=== PATIENT | male | born 1990 | race Two or more races ===

== ENCOUNTER 2017-06-11 14:33 | Emergency (ER) | payer OTHER ==
[~2017-06-11] VITALS: Ht 175.3 cm; Wt 63.5 kg
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
[2017-06-11 15:23] LABS: BASOPHILS % (AUTO) 0.9 % (0.0-2.0); EOSINOPHILS % (AUTO) 0.5 % (0.0-3.0); HEMATOCRIT 43.3 % (42.0-52.0); HEMOGLOBIN 15.2 G/DL (14.2-18.0); LYMPHOCYTES % (AUTO) 14.5 % (20.0-45.0); MEAN CORPUSCULAR VOLUME 96 FL (80-99); MONOCYTES % (AUTO) 6.6 % (1.0-10.0); NEUTROPHILS % (AUTO) 77.5 % (45.0-75.0); PLATELET COUNT 285 K/UL (150-450); RED BLOOD COUNT 4.53 M/UL (4.70-6.10); RED CELL DISTRIBUTION WIDTH 11.9 % (11.6-14.8); WHITE BLOOD COUNT 8.5 K/UL (4.8-10.8)
[2017-06-11 15:26] VITALS: BP 113/66
[2017-06-11 15:56] LABS: ALANINE AMINOTRANSFERASE 47 U/L (12-78); ALBUMIN 3.9 G/DL (3.4-5.0); ALBUMIN/GLOBULIN RATIO 1.1 (1.0-2.7); ALKALINE PHOSPHATASE 125 U/L (46-116); ANION GAP 8 mmol/L (5-15); ASPARTATE AMINO TRANSFERASE 24 U/L (15-37); BILIRUBIN,TOTAL 0.3 MG/DL (0.2-1.0); BLOOD UREA NITROGEN 9 mg/dL (7-18); CARBON DIOXIDE 29 MMOL/L (21-32); CHLORIDE 107 MMOL/L (98-107); SODIUM 144 MMOL/L (136-145)
[2017-06-11 16:16] VITALS: BP 115/66
[2017-06-11 16:40] VITALS: BP 115/66
--- NOTE | 2017-06-12 09:47 | Diagnostic Imaging Report ---
Indication: Head pain Technique: Continuous helical CT scanning of the head was performed utilizing automated exposure control without intravenous contrast material. Axial and coronal reconstructions were obtained. Comparison: None CT dose: Total DLP 1389 mGycm; CTDI vol 70.4 mGy Findings: There is no acute intracranial hemorrhage, mass effect or cortical edema. The ventricles, cisterns and sulci are within normal limits. The posterior fossa and fourth ventricle are unremarkable. Sellar and suprasellar regions are grossly unremarkable. Visualized mastoid air cells and paranasal sinuses are unremarkable. No focal lesions of the bony calvarium or soft tissues of the scalp are seen. Impression: No evidence of acute intracranial hemorrhage, mass effect or cortical edema. MRI may be obtained for more sensitive evaluation as clinically indicated. The CT scanner at [facility] is accredited by the [employer] and the scans are performed using protocols designed to limit radiation exposure to as low as reasonably achievable to attain images of sufficient resolution adequate for diagnostic evaluation.
== END 2017-06-11 16:45 ==
LOC: EDBD 14:33 → EMR 14:59
DX: R41.82 Altered mental status, unspecified (principal); S00.83XA Contusion of other part of head, initial encounter; Y09 Assault by unspecified means
CPT/HCPCS: 36415; 70450; 80053; 80307; 85025; 99284; G0480; 80329